=== PATIENT | male | born 1960 | race Caucasian/White ===

== ENCOUNTER 2025-01-10 15:03 | Outpatient (AMB) | payer BC, SELFPAY ==
--- OUTSIDE RECORDS SUMMARY | 2025-01-10 15:08 | XMS_ITS ---
Author Name [facility] Organization Unknown Care Team Organization Name Specialty Phone Email Start Date End Da te [facility] Mis Castrejon [facility] 04/16/2022 4
--- OUTSIDE RECORDS SUMMARY | 2025-01-10 15:08 | XMS_ITS | Clinical Summary ---
Author Organization [facility] Address [address] [place] [address] Care Team Providers Care Process Development Technician Name Role Phone Mis Castrejon MD Primary Care Provider [phone] Allergies No known active allergies Medications Medication Sig Dispensed Refills Start Date End Date Status simvastatin (ZOCOR) tablet 20 mg 0 09/26/2020 Active omeprazole (PriLOSEC) 20 MG capsule Take 1 capsule by mouth daily. 0 11/16/2018 Active carbidopa-levodopa (SINEMET) 25-100 MG per tablet Take by mouth 3 (three) times a day. 0 Active Rasagiline Mesylate (AZILECT) 1 MG TABS tablet Take 1 mg by mouth daily. 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 10/27/2020 Cancer Staging:Pathologic stage from 10/06/2020:Stage IIIA(pT1b, pN1a, cM0) - Signed by Man Felix MD on 10/27/2020 Tremor 10/27/2020 History of SCC (squamous cell carcinoma) of skin 09/27/2013 Overview: SCC 09/20 right hand (in situ) Esophageal hiatus hernia 06/10/2012 Hypercholesterolemia 11/04/2006 Immunizations Name Administration Dates Next Due Covid-19 (Moderna 12+) 100mcg/0.5mL dosage 12/01,10/27/2020 Family History Medical History Relation Name Comments No Sig Med Hx Brother Diabetes Father Stroke Father Diabetes Mother Emphysema Mother No Sig Med Hx Sister Relation Name Status Comments Brother Father Mother Sister Social History Tobacco Use Types Packs/Day Years Used Date Smoking Tobacco: Never Smokeless Tobacco: Never Alcohol Use Standard Drinks/Week Comments Never 0 (1 standard drink = 0.6 oz pur e alcohol) Sex and Gender Information Value Date Recorded Sex Assigned at Not on file Gender Identity Not on file Sexual Orientation Not on file Job Start Date Occupation Industry Not on file Not on file Not on file Last Filed Vital Signs Vital Sign Reading Time Taken Comments Blood Pressure 128/53 12/23/2022 3:09 PM EDT Pulse 78 12/23/2022 3:09 PM EDT Temperature 37.2 C (98.9 F) 12/23/2022 3:09 PM EDT Respiratory Rate - - Oxygen Saturation 99% 12/23/2022 3:09 PM EDT Inhaled Oxygen Concentration - - Weight 71.9 kg (158 lb 9.6 oz) 12/23/2022 3:09 P M EDT Height 162.6 cm (5' 4 ) 12/23/2022 3:09 PM EDT Body Mass Index 27.22 12/23/2022 3:09 PM EDT Plan of Treatment Health Maintenance Due Date Last Done Comments Hepatitis C Screening 1960 Pneumococcal Vaccine (1 of 2 - PCV) 1966 Pneumococcal Vaccine (1 of 2 - PCV) 1966 Depression Screening 1972 BMI Counseling 1978 Preventative Health Evaluation 1978 Colon Cancer Screening (Colonoscopy) 2005 Hepatitis B Vaccines (3 of 3 - 19+ 3-dose series) 06/01/2013 12/29/2012, 11/30/2012 COVID-19 Vaccine (3 - Moderna risk series) 12/29/2020 12/01/2020, 10/27/2020 Influenza Vaccine (#1) 2025 , 03/09/2020, 03/27/2019, Additional history exists DTap / Tdap / Td (3 - Td or Tdap) 06/13/2031 06/13/2021, 12/24/2010, 10/07/2005 RSV Adult > 60+ Yrs or (1 - 1-dose 75+ series) 2035 Shingrix-Zoster Vaccine Completed 03/27/2019, 01/09 RSV Ped < 20 months Aged Out No longe r eligible based on patient's age to complete this topic Care Teams Process Development Technician Relationship Specialty Start Date End Date Mis Castrejon MD PCP - General Internal Medicine 10/19/20
--- OUTSIDE RECORDS SUMMARY | 2025-01-10 15:08 | XMS_ITS | Clinical Summary ---
Author Organization [address] [facility] Address [address] [place] [address] Phone Care Team Providers Care Cable Tool Operator Name Role Phone Mariana Roche NP Primary Care Provider Allergies No known active allergies Medications omeprazole (PriLOSEC) [address] capsule Take 1 capsule (20 mg total) by mouth. 9 Active rasagiline (AZILECT) 1 mg tablet Take 1 tablet (1 mg total) by mouth. Active carbidopa-levod opa (SINEMET) 25-100 mg per tablet Take by mouth. Activ e simvastatin (ZOCOR) 20 mg tablet Take 1 tablet (20 mg total) by mouth. 1 Active CLOBETASOL PROPIONATE, BULK, MISC Active polyethylene glycol (Golytely) 236-22.74-6.74 -5.86 gram solution Take 4L by mouth once for one dose. May substitue any PEG. Starting at 6PM the night before your procedure drink 1 8oz glasses at your own pace until you complete half of the gallon. Finish 2nd half of the gallon 5 hours before your procedure. 4000 mL 5 Active bisacodyL (DULCOLAX) 5 mg EC tablet Take 2 tablets by mouth right before beginning bowel prep. See instructions provided by the office 2 tablet 5 Active Active Problems Problem Noted Date Diagnosed Date Parkinson's disease (CMS/HCC V24, CMS/HCC V28) 0 08/28/2021 Malignant melanoma of left u pper extremity including shoulder (CMS/HCC V24, CMS/HCC V28) 06/16/2020 Overview (06/10/2024): 06/29 left arm (in situ at least with a focus suspicious of early invasion 0.2 mm) Stage IIIA, positive node Bilateral inguinal hernia without obstruction or gangrene 08/31/2018 Esophageal hiatus hernia 06/10/2012 Su's esophagus 04/05/2008 Erosive esophagitis 04/05/2008 Hypercholesterolemia 11/04/2006 Encounters Date Type Department Care Team Description 12/02/2024 4:08 PM EDT - 12/02/2024 11:59 PM EDT Hospital Encounter [facility] Xray [address] [place] [address] Pain in right hip Discharge Disposition: Home or Self Care from Last 3 Months Immunizations Name Administration Dates Next Due Hepatitis B (Cxfcawz-F-Ziino , Recombivax HB-Adult) 19yo and older 12/29/2012,11/30/2012 Influenza Quadravalent, MDCK , 0.5ml, preservative free (Flucelvax) 6mo and older 03/03/2023,03/27/2019,03/30/2018 Influenza Quadravalent, MDCK , 0.5ml, with preservative (Flucelvax) 6mo and older 04/20/2022,03/20/2017 Influenza trivalent, with pr eservative (Fluzone; Afluria) 6mo and older 04/02/2021,03/09/2020 MMR, measles mumps and rubel la Live (Priorix; M-M-R II) 12mo and older 12/22/2006,11/18/2006 Moderna SARS-CoV-2 COVID-19, mRNA, LNP-S, preservative free 12/01/2020,10/27/2020 Td Tetanus diptheria (Tdvax) 7yo and older 06/13,10/07/2005 Tdap Tetanus diptheria acell ular pertussis (Boostrix; Adacel) 7yo and older 12/24/2010 Zoster recombinant (Shingrix ) 19yo and older 03/27/2019,01/09/2019 Surgical History Surgery Date Site/Laterality Comments COLONOSCOPY 02/16/2008 PROCEDURE: HISTORICAL COLONOSCOPY; COMMENT: normal; repeat in ten years OTHER SURGICAL HISTORY 10/27/2017 PROCEDURE: COLON CA SCRN NOT HI RSK IND; COMMENT: normal; repeat in ten yrs. ESOPHAGOGASTRODUODENOSCOPY 02/16/2008 PROCEDURE: MA ESOPHAGOGASTRODUODENOSCOPY TRANSORAL DIAGNOSTIC; COMMENT: Su's esophagus and hiatus hernia and erosive esophagitis; repeat in two years ESOPHAGOGASTRODUODENOSCOPY 03/19/2010 PROCEDURE: MA EGD TRANSORAL BIOPSY SINGLE/MULTIPLE; COMMENT: Su's esophagus and hiatus hernia; repeat in two years ESOPHAGOGASTRODUODENOSCOPY 06/10/2012 PROCEDURE: MA EGD TRANSORAL BIOPSY SINGLE/MULTIPLE; COMMENT: Su's esophagus without dysplasia , hiatus hernia and fundic gland polyps; repeat in 3 years ESOPHAGOGASTRODUODENOSCOPY 10/27/2017 PROCEDURE: MA EGD TRANSORAL BIOPSY SINGLE/MULTIPLE; COMMENT: Su's esophagus; HH and fundic gland polyps; No dysplasia; repeat in 3 yrs. OTHER SURGICAL HISTORY PROCEDURE: HISTORICAL MELANOMA; COMMENT: Malignant melanoma 06/29 left arm (in situ at least with a focus suspicious of early invasion 0.2 mm) OTHER SURGICAL HISTORY PROCEDURE: HISTORICAL CA BASAL CELL; COMMENT: BCC 06/29 back (metatypical and superficial type) 07/15 left cheek (nodular) OTHER SURGICAL HISTORY 08/14/2020 N/A PROCEDURE: SKIN TISSUE BIOPSY [facility]PCMN PATHOLOGY EXAM; COMMENT: excision with negative margins - mid back superficial and nodular type BCC (initial shave bx 06/12/20) - by Dr. Ranjeet Andrew OTHER SURGICAL HISTORY 08/14/2020 Left PROCEDURE: SKIN TISSUE BIOPSY [facility]PCMN PATHOLOGY EXAM; COMMENT: excision with negative margins - left upper arm superficial spreading malignant melanoma (initial bx 06/12/20) - with concerning features of 0.8 Breslow, brenda level IV, ulceration, vertical growth, 6mm squared mitotic activity - by Dr. Ranjeet Andrew ([facility] OTHER SURGICAL HISTORY 10/06/2020 Left PROCEDURE: SKIN TISSUE BIOPSY SPCMN PATHOLOGY EXAM; COMMENT: re-excision with negative margins - left upper arm melanoma, previously excised 08/14/20 with negative margins but with concerning features (simultaneous axillary sentinel LNB performed and positive) - Dr. Ranjeet Andrew OTHER SURGICAL HISTORY 10/06/2020 Left PROCEDURE: SKIN TISSUE BIOPSY SPCMN PATHOLOGY EXAM; COMMENT: excision with negative margins - left upper back BCC - by Dr. Ranjeet Andrew OTHER SURGICAL HISTORY 10/06/2020 Left PROCEDURE: LYMPH NODE BIOPSY [facility]PCMN PATHOLOGY EXAM; COMMENT: left axillary LNB, positive for metastasis from primary left upper arm melanoma - Dr. Ranjeet Andrew Medical History Medical History Date Comments Pure hypercholesterolemia 11/04/2006 DX:Pur e hypercholesterolemia Esophageal reflux DX:Esophageal reflux History of actinic keratoses 06/12/2020 DX: History of actinic keratoses History of basal cell carcinoma DX:History of basal cell carcinoma; COMMENT: 06/29 back (metatypical and superficial type) 07/15 left cheek (nodular) History of malignant melanoma of skin 06/16/2020 DX:History of malignant melanoma of skin; COMMENT: Malignant melanoma 06/29 left arm (in situ at least with a focus suspicious of early invasion 0.2 mm) Axillary lymphadenopathy 11/10/2020 DX:Axil christi lymphadenopathy Su's esophagus 04/05/2008 DX:Su's esophagus Bilateral inguinal hernia wi thout obstruction or gangrene 08/31/2018 DX:Bilateral inguinal hernia without obstruction or gangrene Erosive esophagitis 04/05/2008 DX:Erosive e sophagitis Esophageal hiatus hernia 06/10/2012 DX:Esop hageal hiatus hernia History of SCC (squamous isaias l carcinoma) of skin 09/27/2013 DX:History of SCC (squamous cell carcinoma) of skin; COMMENT: 09/20 right hand (in situ) Malignant melanoma of left u pper extremity including shoulder (CMS/HCC V24, CMS/HCC V28) 06/16/2020 DX:Malignant melanoma of lef t upper extremity including shoulder (HCC); COMMENT: 06/29 left arm (in situ at least with a focus suspicious of early invasion 0.2 mm) Stage IIIA, positive node Tremor 10/27/2020 DX:Tremor Parkinson's disease (CMS/HCC V24, CMS/HCC V28) 08/28/2021 DX:Parkinson's disease (HCC) Family History Medical History Relation Name Comments Coronary artery disease Brother x 1 Stroke Father diabetes, macul ar degeneration Heart attack Maternal Grandfather Diabetes Mother heart disease, cataract, emphysema Breast cancer Mother's side 1st cousins 2 first cousi ns (sisters) Heart attack Uncle maternal stroke Relation Name Status Comments Brother x 1 Alive Father Maternal Grandfather Maternal Grandmother Mother Mother's side 1st cousins Paternal Grandfather Paternal Grandmother Sister x 2 Alive Uncle maternal Social History Tobacco Use Types Packs/Day Years Used Date Smoking Tobacco: Never Smokeless Tobacco: Never Alcohol Use Standard Drinks/Week Comments Yes 0 (1 standard drink = 0.6 oz pur e alcohol) Interpersonal Safety Answer Date Record ed Physical Abuse 08/03/2024 Verbal Abuse 08/03/2024 Sex and Gender Information Value Date Recorded Sex Assigned at Male 08/02/2024 1:05 PM EST Legal Sex Male 4:22 AM EST Gender Identity Male 08/02/2024 1:05 PM EST Sexual Orientation Straight 08/03/2024 10 :47 AM EST Obstetrics History Last Filed Vital Signs Vital Sign Reading Time Taken Comments Blood Pressure 116/63 08/03/2024 12:50 PM EST Pulse 70 08/03/2024 12:50 PM EST Temperature 36.6 C (97.9 F) 08/03/2024 12:30 PM EST Respiratory Rate 15 08/03/2024 12:50 PM EST Oxygen Saturation 99% 08/03/2024 12:50 PM EST Inhaled Oxygen Concentration - - Weight 70.3 kg (155 lb) 08/03/2024 11:51 AM EST Height 162.6 cm (5' 4 ) 08/03/2024 11:51 AM EST Body Mass Index 26.61 08/03/2024 11:51 AM EST Plan of Treatment Health Maintenance Due Date Last Done Comments Hepatitis B Vaccines (3 of 3 - 19+ 3-dose series) 06/01/2013 12/29/2012, 11/30/2012 HIV Screening 05/17/2022 Social Influencers of Health Screening 05/17/2022 Depression Screening 06/09/2024 COVID-19 Vaccine (5 - Mixed Product risk season) 2025 07/21/2024, 08/04/2021, 12/01/2020, Additional history exists Influenza Vaccine (#1) 2025 , 03/03/2023, 04/20/2022, Additional history exists Cholesterol Screening (Lipid Panel) 06/19/2026 06/19/2021 DTaP,Tdap,and Td Vaccines (4 - Td or Tdap) 06/13/2031 06/13/2021, 12/24/2010, 10/07/2005 Colorectal Cancer Screening: Colonoscopy 08/03/2034 08/03/2024, 10/27/2017 MMR Vaccines Aged Out 12/22/2006, 11/18/2006 No lo nger eligible based on patient's age to complete this topic Hepatitis C Screening Completed 12/19/2012 Zoster Vaccines Completed 03/27/2019, 01/09/2019 RSV Immunization Adult Patients Completed 04/21/2024 Pneumococcal Vaccine: 50+ Years Completed 08/04/2024 HIB Vaccines Aged Out No longer eligi ble based on patient's age to complete this topic HPV Vaccines Aged Out No longer eligi ble based on patient's age to complete this topic Hepatitis A Vaccines Aged Out No long er eligible based on patient's age to complete this topic IPV Vaccines Aged Out No longer eligi ble based on patient's age to complete this topic Meningococcal ACWY Vaccine Aged Out N o longer eligible based on patient's age to complete this topic Meningococcal B Vaccine Aged Out No l onger eligible based on patient's age to complete this topic RSV Immunization Patients Under 20 months Aged Out No longer eligible based on patient's age to complete this topic Varicella Vaccines Aged Out No longer eligible based on patient's age to complete this topic Procedures Procedure Name Priority Date/Time Associated Diagnosis Comments XR HIP 2-3 VIEWS RIGHT Routine 12/02/2024 4:14 PM EDT Pain in right hip COLONOSCOPY Routine 08/03/2024 12:29 PM EST Colon cancer screening LIPID PANEL Routine 06/19/2021 HM HEPATITIS C SCREENING Routine 12/19/2012 from Last 3 Months or Most Recently Relevant to Health Maintenance Results * XR Hip 2-3 Views Right (12/02/2024 4:14 PM EDT) Anatomical Region Laterality Modality Lower Extremities, Hip Right Radiograp hic Imaging 12/06/2024 8:17 AM EDT Impressions 12/06/2024 8:18 AM EDT No acute findings. Mild osteoarthritis of the hips bilaterally. Code 25383 -------- FINAL REPORT -------- Dictated By: Saud Soriano Dictated Date: 12/06/2024 08:17 ET Assigned Physician: Saud Soriano Reviewed and Electronically Signed By: Saud Soriano Signed Date: 12/06/2024 08:18 ET Workstation ID: [id number] Transcribed By: Self Edit Transcribed Date: 12/06/2024 08:17 ET Narrative 12/06/2024 8:18 AM EDT HISTORY: The patient is a 64-year-old male with right hip pain. No history of trauma is provided. FINDINGS: AP radiograph of the pelvis, along with coned-down AP and external rotation-abduction views of the right hip, are obtained. The study demonstrates no fracture, dislocation, or osteolytic or osteoblastic lesion. There is narrowing of the hip joint spaces bilaterally consistent with mild osteoarthritis. No osteolytic or osteoblastic lesion is seen. No soft tissue abnormality is demonstrated. Surgical clips are present in the scrotum consistent with vasectomy. Procedure Note Saud Soriano MD - 12/06/2024 HISTORY: The patient is a 64-year-old male with right hip pain. No historyof trauma is provided. FINDINGS: AP radiograph of the pelvis, along with coned-down AP andexternal rotation-abduction views of the right hip, are obtained. Thestudy demonstrates no fracture, dislocation, or osteolytic or osteoblasticlesion. There is narrowing of the hip joint spaces bilaterally consistentwith mild osteoarthritis. No osteolytic or osteoblastic lesion is seen. Nosoft tissue abnormality is demonstrated. Surgical clips are present in the scrotum consistent with vasectomy. IMPRESSION: No acute findings. Mild osteoarthritis of the hips bilaterally. Code 37846 -------- FINAL REPORT -------- Dictated By: Saud Soriano Dictated Date: 12/06/2024 08:17 ET Assigned Physician: Saud Soriano Reviewed and Electronically Signed By: Saud Soriano Signed Date: 12/06/2024 08:18 ET Workstation ID: [id number] Transcribed By: Self Edit Transcribed Date: 12/06/2024 08:17 ET us Mariana Palma Madisonjovanni LADIES ATTENDANT IMG XR PROCEDURES Final Resul t * COLONOSCOPY Anesthesia - MAC; SP ENDOSCOPY (08/03/2024 12:29 PM EST) Anatomical Region Laterality Modality Endoscopy 08/03/2024 12:0 2 PM EST Impressions 08/03/2024 12:29 PM EST - The examination was otherwise normal. - No specimens collected. Recommendation: - Patient has a contact number available for emergencies. The signs and symptoms of potential delayed complications were discussed with the patient. Return to normal activities tomorrow. Written discharge instructions were provided to the patient. - Resume previous diet. - Continue present medications. - Perform a virtual colonoscopy at appointment to be scheduled. Narrative 08/03/2024 12:29 PM EST [facility] GI Patient Name: Ange Gutierrez Procedure Date: 08/03/2024 12:02 PM Date of : 1960 Age: 64 Room: ROOM 15 Gender: Male Note Status: Finalized Attending MD: Gonzalo Vance MD, Procedure Date No Time: 08/03/2024 Procedure: Colonoscopy Indications: High risk colon cancer surveillance: Personal history of colonic polyps Providers: Gonzalo Vance MD Referring MD: Gonzalo Vance MD Medicines: Monitored Anesthesia Care Complications: No immediate complications. Estimated Blood Loss: Estimated blood loss: none. Procedure: After I obtained informed consent, the scope was passed under direct vision. Throughout the procedure, the patient's blood pressure, pulse, and oxygen saturations were monitored continuously. The Olympus Pediatric Colonosocpe was introduced through the anus with the intention of advancing to the cecum. The scope was advanced to the sigmoid colon before the procedure was aborted. Medications were given. The colonoscopy was technically difficult and complex. At about 50cm in there was a sharp twist, which I could not traverse. Tried rolling him on back, and tried pressure. Tried water irrigation.Could not identify light in inguinal area, but wonder if internal hernia. Hesitant to push...so withdrew scope. Findings: The exam was otherwise without abnormality.But limited as above. MD Gonzalo Smith MD 08/03/2024 12:29:29 PM This report has been signed electronically.Gonzalo Vance MD Number of Addenda: 0 Note Initiated On: 08/03/2024 12:02 PM Scope In: Scope Out: Endoscopy Department at [address] [address] Procedure Note Gonzalo Vance MD - 08/03/2024 [facility] GI Patient Name: Ange Gutierrez Procedure Date: 08/03/2024 12:02 PM Date of : 1960 Age: 64 Room: ROOM 15 Gender: Male Note Status: Finalized Attending MD: Gonzalo Vance MD, Procedure Date No Time: 08/03/2024 Procedure: Colonoscopy Indications: High risk colon cancer surveillance: Personalhistory of colonic polyps Providers: Gonzalo Vance MD Referring MD: Gonzalo Vance MD Medicines: Monitored Anesthesia Care Complications: No immediate complications. Estimated Blood Loss: Estimated blood loss: none. Procedure: After I obtained informed consent, the scope was passed under direct vision. Throughout theprocedure, the patient's blood pressure, pulse, and oxygen saturations were monitored continuously. TheOlympus Pediatric Colonosocpe was introduced through theanus with the intention of advancing to the cecum. The scope was advanced to the sigmoid colon before the procedure was aborted. Medications were given. The colonoscopy was technically difficult and complex.At about 50cm in there was a sharp twist, which Icould not traverse. Tried rolling him on back, and tried pressure. Tried water irrigation.Could not identify light in inguinal area, but wonder if internalhernia. Hesitant to push...so withdrew scope. Findings: The exam was otherwise without abnormality.Butlimited as above. MD Gonzalo Smith MD 08/03/2024 12:29:29 PM This report has been signed electronically.Gonzalo Vance MD Number of Addenda: 0 Note Initiated On: 08/03/2024 12:02 PM Scope In: Scope Out: Endoscopy Department at [address] [address] IMPRESSION: - The examination was otherwise normal. - No specimens collected. Recommendation: - Patient has a contact number available for emergencies. The signs and symptoms of potential delayed complications were discussed with thepatient. Return to normal activities tomorrow. Written discharge instructions were provided to thepatient. - Resume previous diet. - Continue present medications. - Perform a virtual colonoscopy at appointment sudeep scheduled. Daljit Wesley MD GI~PROCEDURE ORDERABLES Final Re sult * (ABNORMAL) Lipid panel (06/19/2021) LDL/HDL Ratio 3 0 - 4 Triglycerides 120(A) 0 - 100 mg/dL Cholesterol 157 0 - 200 mg/dL HDL 46 >=40 mg/dL LDL Cholesterol 87 0 - 100 mg/dL Blood Venous blood specimen / Unknown Result [facility] Historical Provider LAB BLOOD ORDERABLES Yesica l Result * Hepatitis C Screening (12/19/2012) Pathologist [facility] Hepatitis C Screening abstracted Historical Provider HEALTH MAINTENANCE Final Result from Last 3 Months or Most Recently Relevant to Health Maintenance Insurance [facility] Advance Directives Documents on File Type Date Recorded Patient Surgical Aide Expl anation Health Care Decision (hx) 11/28/2020 AD LUND DIRECTIVE Health Care Decision (hx) 11/28/2020 AD LUND DIRECTIVE Health Care Decision (hx) 11/28/2020 AD LUND DIRECTIVE Health Care Decision (hx) 11/28/2020 AD LUND DIRECTIVE Health Care Decision (hx) 11/28/2020 AD LUND DIRECTIVE Health Care Decision (hx) 11/28/2020 AD LUND DIRECTIVE Health Care Decision (hx) 11/28/2020 AD LUND DIRECTIVE Health Care Decision (hx) 11/28/2020 AD LUND DIRECTIVE Health Care Decision (hx) 11/28/2020 AD LUND DIRECTIVE Health Care Decision (hx) 11/28/2020 AD LUND DIRECTIVE Health Care Decision (hx) 11/28/2020 AD LUND DIRECTIVE Health Care Decision (hx) 11/28/2020 AD LUND DIRECTIVE Health Care Decision (hx) 11/28/2020 AD LUND DIRECTIVE Health Care Decision (hx) 11/28/2020 AD LUND DIRECTIVE Health Care Decision (hx) 11/28/2020 AD LUND DIRECTIVE Health Care Decision (hx) 11/28/2020 AD LUND DIRECTIVE Health Care Decision (hx) 11/28/2020 AD LUND DIRECTIVE Health Care Decision (hx) 11/28/2020 AD LUND DIRECTIVE Health Care Decision (hx) 11/28/2020 AD LUND DIRECTIVE Health Care Decision (hx) 11/28/2020 AD LUND DIRECTIVE Health Care Decision (hx) 11/28/2020 AD LUND DIRECTIVE Health Care Decision (hx) 11/28/2020 AD LUND DIRECTIVE Health Care Decision (hx) 11/28/2020 AD LUND DIRECTIVE Health Care Decision (hx) 11/28/2020 AD LUND DIRECTIVE Health Care Decision (hx) 11/28/2020 AD LUND DIRECTIVE Health Care Decision (hx) 11/28/2020 AD LUND DIRECTIVE Health Care Decision (hx) 11/28/2020 AD LUND DIRECTIVE Health Care Decision (hx) 11/28/2020 AD LUND DIRECTIVE Health Care Decision (hx) 11/28/2020 AD LUND DIRECTIVE Health Care Decision (hx) 11/28/2020 AD LUND DIRECTIVE Health Care Decision (hx) 11/28/2020 AD LUND DIRECTIVE Health Care Decision (hx) 11/28/2020 AD LUND DIRECTIVE Health Care Decision (hx) 11/28/2020 AD LUND DIRECTIVE Health Care Decision (hx) 11/28/2020 AD LUND DIRECTIVE Health Care Decision (hx) 11/28/2020 AD LUND DIRECTIVE Health Care Decision (hx) 11/28/2020 AD LUND DIRECTIVE Health Care Decision (hx) 11/28/2020 AD LUND DIRECTIVE Health Care Decision (hx) 11/28/2020 AD LUND DIRECTIVE Health Care Decision (hx) 11/28/2020 AD LUND DIRECTIVE Health Care Decision (hx) 11/28/2020 AD LUND DIRECTIVE Health Care Decision (hx) 11/28/2020 AD LUND DIRECTIVE Health Care Decision (hx) 11/28/2020 AD LUND DIRECTIVE Health Care Decision (hx) 11/28/2020 AD LUND DIRECTIVE Health Care Decision (hx) 11/28/2020 AD LUND DIRECTIVE Health Care Decision (hx) 11/28/2020 AD LUND DIRECTIVE Health Care Decision (hx) 11/28/2020 AD LUND DIRECTIVE Health Care Decision (hx) 11/28/2020 AD LUND DIRECTIVE Health Care Decision (hx) 11/28/2020 AD LUND DIRECTIVE Health Care Decision (hx) 11/28/2020 AD LUND DIRECTIVE Health Care Decision (hx) 11/28/2020 AD LUND DIRECTIVE Health Care Decision (hx) 11/28/2020 AD LUND DIRECTIVE Health Care Decision (hx) 11/28/2020 AD LUND DIRECTIVE Health Care Decision (hx) 11/28/2020 AD LUND DIRECTIVE Health Care Decision (hx) 11/28/2020 AD LUND DIRECTIVE Health Care Decision (hx) 11/28/2020 AD LUND DIRECTIVE Health Care Decision (hx) 11/28/2020 AD LUND DIRECTIVE Health Care Decision (hx) 11/28/2020 AD LUND DIRECTIVE Health Care Decision (hx) 11/28/2020 AD LUND DIRECTIVE Health Care Decision (hx) 11/28/2020 AD LUND DIRECTIVE Health Care Decision (hx) 11/28/2020 AD LUND DIRECTIVE Health Care Decision (hx) 11/28/2020 AD LUND DIRECTIVE Health Care Decision (hx) 11/28/2020 AD LUND DIRECTIVE Health Care Decision (hx) 11/28/2020 AD LUND DIRECTIVE Care Teams Cable Tool Operator Relationship Specialty Start Date End Date Mariana Roche NP [address] [address] [phone] (work) PCP - General Nurse Practitioner 08/02/24
--- NOTE | 2025-01-10 15:12 | MHC.OFFVIS ---
Intake Visit Reasons: PD Allergies No Known Allergies Allergy (Verified 12/09/24 15:54) Medication List - Last Reconciled 01/10/25 by Cathy Love CNP carbidopa-levodopa 25-100 mg (Sinemet) 1 tab PO QID 90 days nivolumab 240 mg IV Q2W omeprazole 20 mg PO DAILY rasagiline 1 mg PO DAILY simvastatin 20 mg PO DAILY HPI Comments Details: He was doing okay. Tremors were about the same, increase some about an hour before next dose of carbidopa-levodopa due. No difficulty eating, drinking, or swallowing. Dexterity is not as good as before. Balance and mobility are okay, but notices he leans forward when walking more. No difficulty getting up from chair. Some trouble turning in bed. Still staying active, playing hockey. Working about 60 hours/week. No falls. Can be forgetful at times. Has a lot going on and is under some stress. Sleep was okay. He had insidious onset and slow progression of tremors in his hands and his whole body in early 2020. It affects his legs at rest sometimes he feels it in his trunk and his hands, with the left being worse than the right. Sometimes, if he focuses, he can control it. 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 Sometimes he feels some tightness in his neck. FOR[facility]LY [facility], [facility] Medical History (Updated 01/10/25 @ 15:16 by Cathy Love CNP) Malignant melanoma of left upper limb, including shoulder Parkinson disease Review of Systems Const Denies chills, Denies daytime sleepiness, Denies difficulty sleeping, Denies fatigue, Denies fever(s), Denies frequent falls, Denies headache(s), Denies increased appetite, Denies poor appetite, Denies snoring, Denies weakness, Denies weight gain and Denies weight loss Eyes Denies loss of vision ENT Denies vertigo, Denies dizziness, Denies headache(s) and Denies neck pain Card Denies chest pain at rest, Denies chest pain with activity, Denies syncope, Denies leg edema, Denies palpitations, Denies dyspnea and Denies dyspnea on exertion Resp Denies cough, Denies dyspnea, Denies dyspnea on exertion and Denies snoring GI Denies abdominal pain, Denies constipation, Denies heartburn, Denies diarrhea and Denies nausea Denies urinary frequency, Denies urinary incontinence and Denies urinary urgency Musc Denies abnormal gait, Denies back pain, Denies myalgias, Denies arthralgias, Denies neck pain, Denies numbness and Denies tingling Neuro Denies abnormal gait, Denies vertigo, Denies dizziness, Denies syncope, Denies frequent falls, Denies headache(s), Denies lack of coordination, Denies loss of vision, Denies memory loss, Denies numbness, Denies Other visual disturbances, Denies restless legs, Denies seizure-like activity, Denies tingling, Denies paresthesias, Reports tremor(s) and Denies weakness Psych Denies anxiety, Denies depression, Denies auditory hallucinations, Denies memory loss and Denies visual hallucinations Endo Denies fatigue and Denies palpitations Physical Exam Const Other: General Appearance:? normal, in no acute distress. Heart:? S1, S2 normal, no murmurs. Lungs:? clear anteriorly and posteriorly. Musculoskeletal:? normal. Extremities:? no edema. Psych:? alert, oriented, cognitive function intact, cooperative with exam. Neuro Other: Abnormal Neurological Findings:?Minimally increased tone BUE, L > R. Mild to mod resting tremors to BUE (L > R), and mild left leg that comes and goes. No significant bradykinesia. Decreased arm swing with forward leaning posture. Decreased facial expressions with reduced blinking frequency. Mental Status: alert and oriented X 3. Normal attention, orientation, memory, and affect. Cranial Nerves: Pupils are equal, round, and reactive to light. External ocular muscles are intact. Visual john are full, no ptosis. Face is symmetrical, no facial weakness or droop. Facial sensations are normal. Tongue protrudes in midline. Palate elevates symmetrically. Shoulder shrugging is normal Motor Examination: Normal muscle tone, bulk and strength. No atrophy or fasciculations. No drift of the extended upper extremities. DTR 2+. Plantars are flexor. Sensory Exam: Normal light touch, temperature, pinprick, vibration, and joint-position sensations. Rhomberg sign is absent. Coordination: No ataxia. No titubation. Gait Exam: As above. Cerebellar Signs: [id number] is okay. Extrapyramidal System: As above. Speech: Normal. Assessment & Plan Assessment & Plan (1) Parkinson disease: Code(s): G20.A1 - Parkinson's disease without dyskinesia, without mention of fluctuations Category: Medical Qualifiers: Dyskinesia presence: without dyskinesia Fluctuating manifestations: without fluctuating manifestations Qualified Code(s): G20.A1 - Parkinson's disease without dyskinesia, without mention of fluctuations Plan: Option to increase carbidopa-levodopa discussed, he was not interested at this time. Continue carbidopa-levodopa 25-100mg 1 tablet four times a day. Continue rasagiline mesylate 1mg 1 tablet daily in the morning. Contine to stay physically active. Coding Level of Care Code Est Pt Level 4 (65662) Diagnoses Parkinson's disease without dyskinesia or fluctuating manifestations G20.A1 Dyskinesia presence: without dyskinesia Fluctuating manifestations: without fluctuating manifestations
== END 2025-01-10 15:34 | disposition home or self-care (01) ==
LOC: HO.HSM 15:04
PROVIDERS: PCP Internal Medicine; Visit Provider Registered Nurse
DX: G20.A1 Parkinson's disease without dyskinesia, without mention of fluctuations (principal)
CPT/HCPCS: 99214